=== PATIENT | male | born 1955 | race Two or more races ===

== ENCOUNTER 2022-05-13 10:20 | Inpatient (IN) | payer MEDICAID ==
[~2022-05-13] VITALS: Ht 175.3 cm; Wt 83.9 kg
--- NOTE | 2022-05-13 11:21 | NUR ---
DL HICKS FROM [facility]ARE HOME,C/O ABDOMINAL PAIN SINCE LAST NIGHT. PAIN IS 5/10 ON PAIN SCALE. PT ATTACHED TO MONITOR, VITALS ARE WITHIN NORMAL LIMITS, NO RESP DISTRESS NOTED ON ROOM AIR. WARM BLANKET PROVIDED FOR COMFORT. AWAITING MD ORDERS.
[2022-05-13 11:53] LABS: BASOPHILS # (AUTO) 0.1 K/uL (0.0-0.2); BASOPHILS % (AUTO) 0.9 % (0.0-2.0); EOSINOPHILS % (AUTO) 0.7 % (0.0-6.0); HEMATOCRIT 55 % (39-51); HEMOGLOBIN 18.7 g/dL (13.5-17.5); LYMPHOCYTES # (AUTO) 1.4 K/uL (0.8-4.8); LYMPHOCYTES % (AUTO) 13.6 % (20.0-44.0); MEAN CORPUSCULAR HGB CONC 34 g/dl (31.0-36.0); MEAN CORPUSCULAR VOLUME 99 fL (80-96); MONOCYTES # (AUTO) 0.7 K/uL (0.1-1.30); MONOCYTES % (AUTO) 7.2 % (2.0-12.0); NEUTROPHILS # (AUTO) 7.9 K/uL (1.8-8.9); NEUTROPHILS % (AUTO) 77.6 % (43.0-81.0); PLATELET COUNT (AUTO) 89 K/uL (150-450); RED BLOOD CELL COUNT(AUTO) 5.51 MIL/uL (4.5-6.0); WHITE BLOOD COUNT (AUTO) 10.2 K/uL (4.3-11.0)
[2022-05-13 12:01] LABS: CALCIUM, SERUM 9.6 mg/dL (8.5-10.1); CREATININE 1.4 mg/dL (0.6-1.3)
[2022-05-13 12:06] LABS: ALBUMIN 3.8 g/dL (3.4-5.0); BILIRUBIN,DIRECT 3.5 mg/dL (0.0-0.2); BILIRUBIN,TOTAL 5.2 mg/dL (0.2-1.0)
--- NOTE | 2022-05-13 12:10 | NUR ---
PATIENT TAKEN TO CT VIA [facility]
[2022-05-13] MEDS ORDERED: FAMO20TA8 PO (12:57)
[2022-05-13] MEDS ORDERED: ASPI-1169 PO (12:57)
[2022-05-13] MEDS ORDERED: ACET-868 PO (12:57)
[2022-05-13] MEDS ORDERED: LEVE500T20 PO (12:57)
[2022-05-13] MEDS ORDERED: LACT10SO3 PO (12:57)
[2022-05-13] MEDS ORDERED: METO25TA4 PO (12:57)
--- NOTE | 2022-05-13 13:18 | NUR ---
ULTRASOUND AT BEDSIDE
--- NOTE | 2022-05-13 13:31 | NUR ---
IV ESTABLIHSED L AC 20G.
--- NOTE | 2022-05-13 13:31 | NUR ---
COVID TEST COLLECTED AND SENT
--- NOTE | 2022-05-13 13:56 | NUR ---
URINE SAMPLE COLLECTED AND SENT TO LAB
[2022-05-13 14:31] LABS: BILIRUBIN,URINE MODERATE (NEGATIVE); COLOR,URINE YELLOW (YELLOW); LEUKOCYTE ESTERASE ,URINE NEGATIVE (NEGATIVE); NITRITE, URINE POSITIVE (NEGATIVE); PH,URINE 5.5 (5.0-8.0); PROTEIN,URINE 30 mg/dl (NEGATIVE); UGLUCOSE NEGATIVE (NEGATIVE); UROBILINOGEN,URINE >=8.0 EU/dL (0.2)
[2022-05-13] MEDS ORDERED: MORPHINE SULFATE INJ 2 MG/ML DISP.SYRIN IV ONE (15:00)
[2022-05-13] MEDS ORDERED: IV NS 0.9% 1,000 ML IV ONE (15:00)
[2022-05-13] MEDS ORDERED: ONDANSETRON HCL/PF 4 MG/2 ML VIAL IV ONE (15:00)
[2022-05-13] MEDS ORDERED: ONDANSETRON HCL/PF 4 MG/2 ML VIAL ONE (15:08)
[2022-05-13] MEDS ORDERED: MORPHINE SULFATE INJ 4 MG/ML DISP.SYRIN ONE (15:08)
--- NOTE | 2022-05-13 15:23 | NUR ---
CALLED DR. WANG LEFT MSG. GI
[2022-05-13 15:41] LABS: BACTERIA,URINE 1+ /HPF (None Seen); SQUAMOUS EPITHELIAL CELL,UR 0-2 /HPF (None Seen)
[2022-05-13] MEDS ORDERED: ONDANSETRON HCL/PF 4 MG/2 ML VIAL IVP PRN (16:30)
[2022-05-13] MEDS ORDERED: Z GUARD REMEDY 4 OZ OINT TP PRN (16:30)
[2022-05-13] MEDS ORDERED: LORAZEPAM INJ 2 MG/ML VIAL IV PRN (16:30)
[2022-05-13] MEDS: LEVETIRACETAM (500MG) 500 MG in IV NS 0.9% 100 ML IV SCH (16:39)
[2022-05-13 16:58] LABS: BAND % (MANUAL) 1 % (0.0-5.0); LYMPHOCYTES % (MANUAL) 15 % (16-48); MONOCYTES % (MANUAL) 6 % (0-11.0); NEUTROPHILS % (MANUAL) 78 (42-76)
--- NOTE | 2022-05-13 18:32 | NUR ---
BED GIVEN 110
--- NOTE | 2022-05-13 18:55 | NUR ---
REPORT GIVEN TO KJ FOR KADIE
[2022-05-13] MEDS ORDERED: MORPHINE SULFATE INJ 4 MG/ML DISP.SYRIN IV PRN (19:00)
--- NOTE | 2022-05-13 19:25 | NUR ---
HISTORY FACULTY MEMBER NOTE 1925 RECEIVED 66 YO M PT FROM ER TRANSPORTED VIA GURNEY ACCOMPANIED BY 2 ER STAFF. PT IS A/O X4, SWISS SPEAKING ONLY, AMBULATORY WITH ASSIST, ON RA TOLERATING WELL, ADMISSION CARE RENDERED, PT REFUSED TO WEAR HOSPITAL GOWN, SKIN IS INTACT, WITH IV ACCESS AT LAC #20G INTACT, PATENT, AND FLUSHING WELL. ABLE TO TURN AND REPOSITION, CALL LIGHT IN PLACE, INSTRUCTED TO CALL FOR ASSISTANCE, BED IN LOWEST AND LOCKED POSITION, V/S TAKEN AND RECORDED, WILL CONT TO MONITOR.
--- NOTE | 2022-05-13 19:31 | NUR ---
PT TRANSPORTED TO UNIT ON [facility] WITH EMT.
[2022-05-13 20:00] VITALS: BP 133/81
[2022-05-13] MEDS: IV D5/0.45 NACL 1,000 ML IV PRN (20:29)
[2022-05-14] MEDS: LEVETIRACETAM (500MG) 500 MG in IV NS 0.9% 100 ML IV SCH ×2 (03:46→16:23)
[2022-05-14 04:00] VITALS: BP 123/71
--- NOTE | 2022-05-14 06:49 | NUR ---
MS RN CLOSING NOTE PATIENT REMAINS IN BED, A/O X4, UZBEK SPEAKING ONLY, AMBULATORY WITH ASSIST, ON RA TOLERATING WELL, WITH IV ACCESS AT LAC #20G INTACT, PATENT, AND FLUSHING WELL RUNNING D5 1/2 NS AT 100 ML/HR. PT ON NPO STATUS, ALL DUE MEDS GIVEN, ABLE TO TURN AND REPOSITION, CALL LIGHT IN PLACE, BED IN LOWEST AND LOCKED POSITION, V/S TAKEN AND RECORDED, WILL ENDORSE TO AM SHIFT NURSE FOR CONTINUITY OF CARE.
[2022-05-14 07:22] LABS: THYROID STIMULATING HORMONE 1.354 uIU/mL (0.358-3.74)
--- NOTE | 2022-05-14 07:28 | NUR ---
INSTRUCTOR CREELER OPENING NOTES: RECEIVED BHUTANESE SPEAKING PATIENT IN BED, AWAKE, ALERT, ORIENTED X 4. NO RESPIRATORY DISTRESS NOTED. ON RA WITH OXYGEN SATURATION OF 96%. IV LINE ON LEFT AC INTACT, INFUSING WITH D51/2 NS @ 100 ML/HR. NO C/O PAIN OR NAUSEA AT THIS TIME. BED LOCKED AND IN LOWEST POSITION. CALL LIGHT WITHIN REACH. INSTRUCTED PATIENT TO PLEASE USE THE CALL LIGHT WHENEVER HE NEEDS TO USE THE BATHROOM OR TO PLEASE USE HIS URINAL THROUGH BHUTANESE SPEAKING GEOVANNA BUNDY. PATIENT AGREED AND UNDERSTOOD. WILL CONTINUE TO MONITOR PATIENT THROUGHOUT SHIFT.
[2022-05-14 07:37] LABS: BASOPHILS % (AUTO) 0.3 % (0.0-2.0); HEMATOCRIT 48 % (39-51); HEMOGLOBIN 16.2 g/dL (13.5-17.5); LYMPHOCYTES # (AUTO) 1.5 K/uL (0.8-4.8); LYMPHOCYTES % (AUTO) 16.9 % (20.0-44.0); MEAN CORPUSCULAR HGB CONC 34 g/dl (31.0-36.0); MEAN CORPUSCULAR VOLUME 100 fL (80-96); MONOCYTES % (AUTO) 10.7 % (2.0-12.0); NEUTROPHILS # (AUTO) 6.4 K/uL (1.8-8.9); NEUTROPHILS % (AUTO) 71.1 % (43.0-81.0); PLATELET COUNT (AUTO) 72 K/uL (150-450)
[2022-05-14 07:44] LABS: ALBUMIN 3.2 g/dL (3.4-5.0); BILIRUBIN,DIRECT 3.8 mg/dL (0.0-0.2); BILIRUBIN,TOTAL 6.7 mg/dL (0.2-1.0); CALCIUM, SERUM 8.8 mg/dL (8.5-10.1); CREATININE 1.2 mg/dL (0.6-1.3); MAGNESIUM 1.9 mg/dL (1.8-2.4); PHOSPHORUS 2.4 mg/dL (2.5-4.9); POTASSIUM 3.7 mmol/L (3.5-5.1); TOTAL PROTEIN, SERUM 6.9 g/dL (6.4-8.2)
[2022-05-14] MEDS: PANTOPRAZOLE 40 MG VIAL IV SCH (08:05)
[2022-05-14] MEDS: IV D5/0.45 NACL 1,000 ML IV PRN (08:53)
--- NOTE | 2022-05-14 08:58 | NUR ---
PATIENT WAS PICKED UP FOR MRI AND LEFT VIA WHEELCHAIR, PATENT LEFT IN NO ACUTE DISTRESS
--- NOTE | 2022-05-14 09:35 | NUR ---
PATIENT CAME BACK FROM THE PROCEDURE AND WAS PLACED BACK IN THE BED, PATIENT IN NO APPARENT DISTRESS AT THIS TIME
[2022-05-14] MEDS ORDERED: Sodium Phosphate 30 MMOL in IV NS 0.9% 250 ML IV SCH (10:00)
--- NOTE | 2022-05-14 10:29 | NUR ---
SPOKE WITH DR. LUZ AND WILL ORDER AN ERCP FOR THE PATIENT. WILL WITNESS INFORMED CONSENT
[2022-05-14 11:11] LABS: BAND % (MANUAL) 1 % (0.0-5.0); LYMPHOCYTES % (MANUAL) 14 % (16-48); MONOCYTES % (MANUAL) 8 % (0-11.0); NEUTROPHILS % (MANUAL) 77 (42-76)
[2022-05-14 12:00] VITALS: BP 126/71
[2022-05-14] MEDS: LACTULOSE 10 G/15 ML UDC (PYXIS) PO SCH ×2 (18:00→18:57)
--- NOTE | 2022-05-14 19:04 | NUR ---
MED SURG CLOSING NOTES: PATIENT IN BED, AWAKE, ALERT, ORIENTED, NO C/O PAIN OR DISCOMFORT AT THIS TIME, NO EPISODE OF N/V NOTED. PATIENT REMAINS STABLE THE ENTIRE SHIFT. CALL LIGHT WITHIN REACH. WILL ENDORSE TO NEXT SHIFT NURSE FOR CONTINUITY OF CARE.
[2022-05-14 20:00] VITALS: BP 135/63
--- NOTE | 2022-05-14 20:00 | NUR ---
RN NOTE RECEIVED PT AWAKE, WATCHING TV. AOX4. DENIES ANY SOB OR PAIN OR N/V. IVFLUIDS D51/2 NS RUNNING AT 100ML/HR, NO SIGNS OF INFILTRATION NOTED. INSTRUCTED PT TO BE NPO AFTER MIDNIGHT, VERBALIZES UNDERSTANDING. ALL SAFETY MEASURES IN PLACE PER PROTOCOL. WILL CONTINUE TO MONITOR.
[2022-05-14] MEDS: LEVOFLOXACIN 500 MG /D5W 100ML 500 MG in PREMIX 1 EA IV SCH (20:35)
[2022-05-14] MEDS: METRONIDAZOLE 500MG/ NS 100ML 500 MG in PREMIX 1 EA IV SCH (21:53)
[2022-05-15 04:00] VITALS: BP 119/78
[2022-05-15] MEDS: LEVETIRACETAM (500MG) 500 MG in IV NS 0.9% 100 ML IV SCH (04:51)
[2022-05-15] MEDS: IV D5/0.45 NACL 1,000 ML IV PRN (04:52)
[2022-05-15] MEDS: METRONIDAZOLE 500MG/ NS 100ML 500 MG in PREMIX 1 EA IV SCH ×3 (05:37→20:58)
[2022-05-15 06:08] LABS: ALBUMIN 2.8 g/dL (3.4-5.0); BILIRUBIN,DIRECT 1.9 mg/dL (0.0-0.2); BILIRUBIN,TOTAL 5.7 mg/dL (0.2-1.0); CALCIUM, SERUM 8.1 mg/dL (8.5-10.1); POTASSIUM 3.7 mmol/L (3.5-5.1); TOTAL PROTEIN, SERUM 6.2 g/dL (6.4-8.2)
--- NOTE | 2022-05-15 07:30 | NUR ---
RN OPENING NOTE PATIENT IS IN BED AWAKE, ALERT AND ORIENTED X 4. ON ROOM AIR, BREATHING UNLABORED AND NOT IN ANY FORM OF DISTRESS. NPO OF THIS TIME IN PREPARATION FOR ERCP. RIGHT FOREARM INTACT AND INFUSING WITH D51/2NS AT 100 ML/HR. ALL HOSPITAL SAFETY PRECAUTIONS IN PLACE. BED IS LOCKED IN LOWEST POSITION, 3 SIDE RAILS UP, CALL LIGHT WITHIN REACH. WILL CONTINUE TO MONITOR THROUGHOUT SHIFT.
--- NOTE | 2022-05-15 07:42 | NUR ---
RN NOTE PT AWAKE, DENIES ANY PAIN NO N/V ALL SHIFT. REMAIN NPO. CONTINUE WITH FLUIDS D51/2 NS AT 100ML/HR, INFUSING WELL. PT AMBULATES TO RESTROOM, STEADY GAIT. NEEDS ATTENDED. ENDORSED TO AM SHIFT NURSE FOR KADIE
[2022-05-15] MEDS ORDERED: ACETAMINOPHEN 325 MG TABLET PO PRN (09:00)
[2022-05-15] MEDS: LACTULOSE 10 G/15 ML UDC (PYXIS) PO SCH ×7 (09:00→21:00)
[2022-05-15] MEDS: PANTOPRAZOLE 40 MG VIAL IV SCH (09:21)
[2022-05-15] MEDS: LEVETIRACETAM (250 MG) 250 MG TABLET PO SCH ×2 (09:22→16:25)
[2022-05-15] MEDS: ASPIRIN 81 MG TAB.CHEW PO SCH (09:22)
[2022-05-15] MEDS: FAMOTIDINE (20 MG) 20 MG TABLET PO SCH (09:22)
--- NOTE | 2022-05-15 12:00 | NUR ---
RN NOTE DR. LUZ MADE ROUNDS. PER DOCTOR, ERCP WILL NOT PROCEED SINCE IT IS NOT NEEED BASED ON MRI OF ABDOMEN RESULT. FROM DR. LUZ'S END, PATIENT MAY BE DISCHARGED. DR. PÉREZ WAS INFORMED OVER THE PHONE, WHO IN TURN DIRECTED THE NURSE TO INFORM [id number] FOR CONSULT.
[2022-05-15 13:44] VITALS: BP 124/76
--- NOTE | 2022-05-15 17:00 | NUR ---
RN NOTE PATIENT WAS SEEN BY MARCO ANTONIO JOYCE FROM SURGERY. PER HAIR BLENDER, PATIENT REFUSED SURGERY, AND FROM SURGERY'S END, PATIENT CAN BE DISCHARGED. CHARGE NURSE MADE AWARE. CASE MANAGEMENT INFORMED OF THE PLAN.
--- NOTE | 2022-05-15 17:47 | NUR ---
RN NOTE LACTULOSE NOT GIVEN DUE TO PATIENT'S REFUSAL. TRIED TO EDUCATE PATIENT OF THE BENEFITS OF THE MEDICATION BUT PATIENT STILL REFUSED. DR. LUZ MADE AWARE.
--- NOTE | 2022-05-15 17:48 | NUR ---
RN NOTE METROPROLOL NOT GIVEN DUE TO HR 48 BPM.
[2022-05-15] MEDS ORDERED: METOPROLOL SUCCINATE 25 MG TAB.SR.24H PO SCH (18:00)
--- NOTE | 2022-05-15 18:49 | NUR ---
RN NOTE PATIENT IS AGITATED. ATIVAN GIVEN PRN.
--- NOTE | 2022-05-15 18:50 | NUR ---
RN CLOSING NOTE PATIENT REMAINED STABLE THROUGHOUT SHIFT. TOLERATES ROOM AIR, BREATHING UNLABORED AND NOT IN ANY FORM OF DISTRESS. PATIENT REFUSES IV INFUSION OF NS AT 100 ML/HR. PATIENT LIKEWISE REFUSED LACTULOSE SAYING IT GIVES HIM DIARRHEA. ALL HOSPITAL SAFETY PRECAUTIONS IN PLACE. BED IS LOCKED IN LOWEST POSITION, 3 SIDE RAILS UP, CALL LIGHT WITHIN REACH. WILL ENDORSE TO DRAW OFF WORKER NURSE.
--- NOTE | 2022-05-15 19:30 | NUR ---
RN OPENING NOTE PATIENT TOLERATES ROOM AIR, BREATHING UNLABORED AND NOT IN ANY FORM OF DISTRESS. PATIENT REFUSES IV INFUSION OF NS AT 100 ML/HR.ALL HOSPITAL SAFETY PRECAUTIONS IN PLACE. BED IS LOCKED IN LOWEST POSITION, 3 SIDE RAILS UP,
[2022-05-15 20:00] VITALS: BP 114/77
[2022-05-15] MEDS: LEVOFLOXACIN 500 MG /D5W 100ML 500 MG in PREMIX 1 EA IV SCH ×2 (20:44→20:46)
--- NOTE | 2022-05-15 21:02 | NUR ---
RN NOTE PT REPORTING MILD PAIN 3/10 PRN TYLENOL PROVIDED TOLERATED WELL.
--- NOTE | 2022-05-15 21:04 | NUR ---
RN NOTES PT REFUSING IV FLUIDS AND ANTIBIOTIC X3 RISK AND BENEFITS EXPLAINED PT STATED " I DON'T WANT ANY OF THAT JUST GIVE ME SOME TYLENOL THAT'S ALL IM GOING HOME TOMORROW ANYWAY ITS FINE"
[2022-05-16 04:09] VITALS: BP 113/68
[2022-05-16] MEDS: METRONIDAZOLE 500MG/ NS 100ML 500 MG in PREMIX 1 EA IV SCH (05:00)
--- NOTE | 2022-05-16 06:39 | NUR ---
RN CLOSING NOTE PATIENT TOLERATES ROOM AIR, BREATHING UNLABORED AND NOT IN ANY FORM OF DISTRESS. PATIENT REFUSES IV INFUSION OF NS AT 100 ML/HR. PT CONTINUOS TO REFUSE ALL IV FLUID AND ANTIBIOTICS DESPITE RISK AND BENEFITS EXPLANATION X3 PT KEEP INSISTING HE WANTS TO BE DISCHARGED TODAY.ALL HOSPITAL SAFETY PRECAUTIONS IN PLACE. BED IS LOCKED IN LOWEST POSITION, 3 SIDE RAILS UP,
[2022-05-16 06:53] LABS: ALBUMIN 2.9 g/dL (3.4-5.0); BILIRUBIN,DIRECT 1.5 mg/dL (0.0-0.2); BILIRUBIN,TOTAL 4.4 mg/dL (0.2-1.0); CALCIUM, SERUM 8.7 mg/dL (8.5-10.1); POTASSIUM 3.9 mmol/L (3.5-5.1); TOTAL PROTEIN, SERUM 6.6 g/dL (6.4-8.2)
--- NOTE | 2022-05-16 07:20 | NUR ---
RN OPENING NOTE PATIENT IS IN BED AWAKE, ALERT AND ORIENTED X 4. ON ROOM AIR, BREATHING UNLABORED AND NOT IN ANY FORM OF DISTRESS. . RIGHT FOREARM INTACT RX FLUIDS NOT RUNNING PATIENT REFUSES ANYTHING IV ENDORSED BY GLOBE CHANGER. ALL HOSPITAL SAFETY PRECAUTIONS IN PLACE. BED IS LOCKED IN LOWEST POSITION, 3 SIDE RAILS UP, CALL LIGHT WITHIN REACH. .
[2022-05-16] MEDS ORDERED: PANTOPRAZOLE 40 MG TABLET.DR PO SCH (07:30)
[2022-05-16] MEDS: FAMOTIDINE (20 MG) 20 MG TABLET PO SCH (08:16)
[2022-05-16] MEDS: ASPIRIN 81 MG TAB.CHEW PO SCH (08:16)
[2022-05-16] MEDS: LACTULOSE 10 G/15 ML UDC (PYXIS) PO SCH ×2 (08:16→12:07)
[2022-05-16] MEDS: LEVETIRACETAM (250 MG) 250 MG TABLET PO SCH (08:16)
[2022-05-16] MEDS ORDERED: LEVOFLOXACIN (250MG) 250 MG TABLET PO SCH (09:00)
--- NOTE | 2022-05-16 12:45 | NUR ---
RN NOTE PATIENT WAS PICKED UP IN STABLE CONDITION AND TAKEN TO [address] [place] [address]. D/C EDUCATION GIVEN IV REMOVED.
[2022-05-16] MEDS ORDERED: METRONIDAZOLE 500 MG TABLET PO SCH (13:00)
== END 2022-05-16 13:33 ==
LOC: ER 10:37 → MEDSG1 18:36
PROVIDERS: ADMIT Nurse Practitioner Acute Care; ATTEND Internal Medicine
DX: K80.50 Calculus of bile duct without cholangitis or cholecystitis without obstruction (principal); N17.0 Acute kidney failure with tubular necrosis; D61.818 Other pancytopenia; E88.09 Other disorders of plasma-protein metabolism, not elsewhere classified; E83.39 Other disorders of phosphorus metabolism; K76.6 Portal hypertension; Z20.822 Contact with and (suspected) exposure to COVID-19; K70.30 Alcoholic cirrhosis of liver without ascites; G40.909 Epilepsy, unspecified, not intractable, without status epilepticus; R74.01 Elevation of levels of liver transaminase levels; I10 Essential (primary) hypertension; Z79.82 Long term (current) use of aspirin; Z79.899 Other long term (current) drug therapy; R74.8 Abnormal levels of other serum enzymes; F10.11 Alcohol abuse, in remission
CPT/HCPCS: 36415; 74181-TC; 76705-TC; 80048-TC; 80076-TC; 81001; 82140-TC; 83690-TC; 83735-TC; 84100-TC; 84443-TC; 85025-TC; 87081-TC; 87086-TC; A4216; A9563; C9113; C9803; G0378; J1953; J1956; J2060; J2270; J2405; J3490; J7030; J7050

== ENCOUNTER 2022-05-16 18:18 | Inpatient (IN) | payer MEDICAID ==
[~2022-05-16] VITALS: Ht 175.3 cm; Wt 81.6 kg
[~2022-05-16 18:18] MED LIST: ACET-868 PO; ASPI-1169 PO; FAMO20TA8 PO; LACT10SO3 PO; LEVE500T20 PO; METO25TA4 PO
--- NOTE | 2022-05-16 18:30 | NUR ---
REceived pt 66 yrs male came from [facility] BY [facility] C/O ABDOMINALE PAIN WITH N/V awake and alert seen by DR. SERRANO
--- NOTE | 2022-05-16 18:45 | NUR ---
BLOOD DROW BY lab tach
[2022-05-16] MEDS ORDERED: IV NS 0.9% 1,000 ML BAG IV ONE (19:00)
--- NOTE | 2022-05-16 19:00 | NUR ---
Inserted ANGO CATHETER ON LT FOR ARM IVF NS INFUSED AND PATENT 1000ML OVER ONE HR
--- NOTE | 2022-05-16 19:15 | NUR ---
HAND OFF SEBAS RAMOS
--- NOTE | 2022-05-16 19:27 | NUR ---
deandre collected amd sent to lab
--- NOTE | 2022-05-16 19:31 | NUR ---
pt unable to provide urine sample. provided with urinal.
[2022-05-16 19:41] LABS: BILIRUBIN,DIRECT 5.8 mg/dL (0.0-0.2); BILIRUBIN,TOTAL 7.8 mg/dL (0.2-1.0); CALCIUM, SERUM 10.2 mg/dL (8.5-10.1); CREATININE 1.5 mg/dL (0.6-1.3); POTASSIUM 4.2 mmol/L (3.5-5.1); TOTAL PROTEIN, SERUM 8.4 g/dL (6.4-8.2)
[2022-05-16] MEDS ORDERED: MORPHINE SULFATE INJ 4 MG/ML DISP.SYRIN ONE (19:43)
[2022-05-16] MEDS ORDERED: ONDANSETRON HCL/PF 4 MG/2 ML VIAL ONE (19:43)
[2022-05-16] MEDS ORDERED: MORPHINE SULFATE INJ 2 MG/ML DISP.SYRIN IV ONE (20:00)
[2022-05-16] MEDS ORDERED: ONDANSETRON HCL/PF 4 MG/2 ML VIAL IVP ONE (20:00)
[2022-05-16 20:01] LABS: BASOPHILS % (AUTO) 0.3 % (0.0-2.0); EOSINOPHILS % (AUTO) 0.2 % (0.0-6.0); HEMATOCRIT 55 % (39-51); HEMOGLOBIN 18.6 g/dL (13.5-17.5); LYMPHOCYTES # (AUTO) 0.4 K/uL (0.8-4.8); LYMPHOCYTES % (AUTO) 4.8 % (20.0-44.0); MEAN CORPUSCULAR HGB CONC 34 g/dl (31.0-36.0); MEAN CORPUSCULAR VOLUME 100 fL (80-96); MONOCYTES # (AUTO) 0.5 K/uL (0.1-1.30); MONOCYTES % (AUTO) 5.6 % (2.0-12.0); NEUTROPHILS % (AUTO) 89.1 % (43.0-81.0); PLATELET COUNT (AUTO) 80 K/uL (150-450); RED BLOOD CELL COUNT(AUTO) 5.48 MIL/uL (4.5-6.0)
[2022-05-16] MEDS ORDERED: ONDANSETRON HCL/PF 4 MG/2 ML VIAL IVP PRN (21:30)
[2022-05-16] MEDS ORDERED: Z GUARD REMEDY 4 OZ OINT TP PRN (21:30)
[2022-05-16] MEDS ORDERED: MAGNESIUM HYDROXIDE 30 ML UDC PO PRN (21:30)
[2022-05-16] MEDS ORDERED: ACETAMINOPHEN 325 MG TABLET PO PRN ×2 (21:30)
[2022-05-16] MEDS ORDERED: MAG HYDROX/AL HYDROX/SIMETH 30 ML UDC PO PRN (21:30)
[2022-05-16 22:05] LABS: BAND % (MANUAL) 1 % (0.0-5.0); EOSINOPHILS % (MANUAL) 1 % (0-4); LYMPHOCYTES % (MANUAL) 9 % (16-48); MONOCYTES % (MANUAL) 1 % (0-11.0); NEUTROPHILS % (MANUAL) 88 (42-76)
--- NOTE | 2022-05-16 22:55 | NUR ---
REPORT GIVEN TO RICHARD RENE.
[2022-05-16 23:50] VITALS: BP 132/71
--- NOTE | 2022-05-16 23:50 | NUR ---
PT TRANSPORTED TO ROOM [facility]IA [facility].
--- NOTE | 2022-05-16 23:50 | NUR ---
MS POLYGRAPH TECHNICIAN NOTE RECEIVED REPORT FROM ER NURSE NASREEN. PT ADMITTED IN ROOM 312-2 WITH DIAGNOSIS OF ACUTE CHOLECYSTITIS. PT IS A/O X4, ABLE TO VERBALIZE NEEDS. ON ROOM AIR. TOLERATING RA WELL. PT ABLE TO AMBULATE TO BATHROOM. PT'S SKIN IS INTACT. C/O ABDOMINAL PAIN WITH PAIN MANAGEMENT IN PLACE. IV ACCESS TO LEFT FA INTACT, AND PATENT, IV RUNNING NS AT 75 ML/HR. WILL CONTINUE TO MONITOR PT.
--- NOTE | 2022-05-16 23:50 | NUR ---
URINE COLLECTED AND SENT TO LAB
[2022-05-17] MEDS: MORPHINE SULFATE INJ 2 MG/ML DISP.SYRIN IV PRN ×2 (01:23→16:45)
[2022-05-17] MEDS: ENOXAPARIN SODIUM 40 MG/0.4 ML DISP.SYRIN SQ SCH ×2 (01:33→21:46)
[2022-05-17 02:13] LABS: BILIRUBIN,URINE MODERATE (NEGATIVE); COLOR,URINE DARK YELLOW (YELLOW); LEUKOCYTE ESTERASE ,URINE NEGATIVE (NEGATIVE); NITRITE, URINE NEGATIVE (NEGATIVE); PH,URINE 5.5 (5.0-8.0); PROTEIN,URINE NEGATIVE (NEGATIVE); UGLUCOSE NEGATIVE (NEGATIVE); UROBILINOGEN,URINE 0.2 EU/dL (0.2)
[2022-05-17 02:17] LABS: BACTERIA,URINE Rare /HPF (None Seen); SQUAMOUS EPITHELIAL CELL,UR Few /HPF (None Seen)
[2022-05-17 02:18] LABS: HYALINE CASTS, URINE Few /LPF (None Seen)
--- NOTE | 2022-05-17 07:15 | NUR ---
MS RN CLOSING NOTE LEFT PT SLEEPING IN BED. PT A/OX4, ABLE TO MAKE NEEDS KNOWN. NO ACUTE DISTRESS NOTED, NO C/O PAIN AT THIS TIME. ALL MEDS GIVEN IN TIMELY MANNER. SAFETY MEASURES OBSERVED: BED IN LOW POSITION, BED LOCKED, SIDE RAILS UP X2, CALL LIGHT WITHIN REACH. WILL ENDORSE PT'S CARE TO AM SHIFT NURSE.
--- NOTE | 2022-05-17 07:25 | NUR ---
RN OPENING NOTES RECEIVED PATIENT IN BED AWAKE, A/O X4, VERBALLY RESPONSIVE, NO SIGNS OF ACUTE DISTRESS NOTED. DENIES ANY PAIN AT THIS TIME. ON ROOM AIR, NO SOB NOTED, BREATHING EVEN AND UNLABORED. NOTED WITH IV ACCESS ON LEFT FORE ARM #20G, INTACT AND PATENT WITH NS @75ML/HR RUNNING. SAFETY MEASURE IN PLACE. BED IN LOWEST AND LOCKED POSITION , SIDE RAILS UP X2, CALL LIGHT PLACED WITHIN EASY REACH. WILL CONTINUE TO MONITOR PATIENT.
[2022-05-17 07:43] LABS: BASOPHILS % (AUTO) 0.5 % (0.0-2.0); EOSINOPHILS % (AUTO) 3.3 % (0.0-6.0); HEMATOCRIT 48 % (39-51); HEMOGLOBIN 16.1 g/dL (13.5-17.5); LYMPHOCYTES # (AUTO) 1.5 K/uL (0.8-4.8); MEAN CORPUSCULAR HGB CONC 34 g/dl (31.0-36.0); MEAN CORPUSCULAR VOLUME 101 fL (80-96); MONOCYTES # (AUTO) 0.8 K/uL (0.1-1.30); MONOCYTES % (AUTO) 9.9 % (2.0-12.0); NEUTROPHILS # (AUTO) 5.5 K/uL (1.8-8.9); NEUTROPHILS % (AUTO) 67.3 % (43.0-81.0); PLATELET COUNT (AUTO) 65 K/uL (150-450); RED BLOOD CELL COUNT(AUTO) 4.74 MIL/uL (4.5-6.0); WHITE BLOOD COUNT (AUTO) 8.1 K/uL (4.3-11.0)
[2022-05-17 08:14] LABS: ALBUMIN 2.7 g/dL (3.4-5.0); BILIRUBIN,DIRECT 5.3 mg/dL (0.0-0.2); BILIRUBIN,TOTAL 7.2 mg/dL (0.2-1.0); CALCIUM, SERUM 8.5 mg/dL (8.5-10.1); CREATININE 1.1 mg/dL (0.6-1.3); MAGNESIUM 2.1 mg/dL (1.8-2.4); PHOSPHORUS 2.3 mg/dL (2.5-4.9); TOTAL PROTEIN, SERUM 6.2 g/dL (6.4-8.2)
[2022-05-17 08:34] VITALS: BP 128/70
[2022-05-17] MEDS: PANTOPRAZOLE 40 MG VIAL IV SCH (08:54)
[2022-05-17] MEDS: ASPIRIN 81 MG TAB.CHEW PO SCH (08:54)
[2022-05-17] MEDS: LEVETIRACETAM (250 MG) 250 MG TABLET PO SCH ×2 (08:54→21:31)
[2022-05-17] MEDS: FAMOTIDINE (20 MG) 20 MG TABLET PO SCH (08:54)
[2022-05-17] MEDS: LACTULOSE 10 G/15 ML UDC (PYXIS) PO SCH ×5 (09:30→21:30)
--- NOTE | 2022-05-17 09:47 | NUR ---
RN NOTE PATIENT REFUSED LACTULOSE IN SPITE EXPLANATION OF IMPORTANCE, PT STILL STRONGLY REFUSED SAID IT MAKES HIM GO TO THE BATHROOM OFTEN.
[2022-05-17 11:59] LABS: BAND % (MANUAL) 1 % (0.0-5.0); EOSINOPHILS % (MANUAL) 5 % (0-4); LYMPHOCYTES % (MANUAL) 19 % (16-48); MONOCYTES % (MANUAL) 8 % (0-11.0); NEUTROPHILS % (MANUAL) 67 (42-76)
[2022-05-17 16:32] VITALS: BP 130/70
[2022-05-17] MEDS: IV D5/0.45 NACL 1,000 ML IV PRN (16:35)
[2022-05-17] MEDS: METOPROLOL SUCCINATE 25 MG TAB.SR.24H PO SCH (17:03)
[2022-05-17] MEDS ORDERED: NEUTRA PHOS 1 POWD.PACKET PO ONE (18:00)
--- NOTE | 2022-05-17 18:48 | NUR ---
RN CLOSING NOTES PATIENT IN BED AWAKE, A/O X4, VERBALLY RESPONSIVE, NO SIGNS OF ACUTE DISTRESS NOTED. REMAINS STABLE ON ROOM AIR, NO SOB NOTED, BREATHING EVEN AND UNLABORED. IV ACCESS ON LEFT FORE ARM #20G, INTACT AND PATENT WITH NS @75ML/HR RUNNING. PATIENT REFUSED LACTULOSE IN SPITE EXPLANATION OF IMPORTANCE. ALL OTHER MEDS TAKEN WELL. REMAINS ON CLEAR LIQUID UNTIL CLEAR PLAN FOR SURGERY. SAFETY MEASURE IN PLACE. BED IN LOWEST AND LOCKED POSITION , SIDE RAILS UP X2, CALL LIGHT PLACED WITHIN EASY REACH. WILL ENDORSE TO NEXT SHIFT FOR CONTINUITY OF CARE.
--- NOTE | 2022-05-17 19:35 | NUR ---
MS RN OPENING NOTE RECEIVED PATIENT IN BED AWAKE, A/O X 4, VERBALLY RESPONSIVE, NO SIGNS OF ACUTE DISTRESS OR SOB NOTED. DENIES ANY PAIN AT THIS TIME. ON ROOM AIR. BREATHING EVEN AND UNLABORED. IV ACCESS TO LEFT FOREARM #20G, INTACT AND PATENT WITH D5 1/2 NS RUNNING AT 75ML/HR. SAFETY MEASURE IN PLACE. BED IN LOWEST AND LOCKED POSITION , SIDE RAILS UP X2, CALL LIGHT PLACED WITHIN EASY REACH. WILL CONTINUE TO MONITOR PATIENT.
[2022-05-17 20:00] VITALS: BP 136/72
--- NOTE | 2022-05-17 21:30 | NUR ---
PT'S PLT LEVEL IS LOW, PLT: 65, HGB: 16.1, HCT: 48. YESTERDAY PLT WAS 80. PT IS ON LOVENOX 40 MG QD. MD ANTONY WALKER CALLED, AND ASKED IF LOVENOX SHOULD BE HELD D/T LOW PLT. ADVICES TO GIVE LOVENOX ANYWAY. LOVENOX IS ADMINISTERED BY MD HICKMAN.
[2022-05-18] MEDS: MORPHINE SULFATE INJ 2 MG/ML DISP.SYRIN IV PRN ×2 (06:43→21:35)
--- NOTE | 2022-05-18 07:13 | NUR ---
MS RN CLOSING NOTE PATIENT SLEEPING IN BED, PT A/O X4, ABLE TO VERBALIZE NEEDS. ON ROOM AIR, TOLERATING WELL. NO SOB, NO DISTRESS NOTED. NO C/O PAIN AT THIS TIME. COMFORT MEASURES PROVIDED. WITH IV ACCESS TO RIGHT FA WITH D5 1/2 NS AT 75ML/HR, INFUSING WELL. SAFETY MEASURES IN PLACED. CALL LIGHT WITHIN REACH. BED IN LOWEST LOCKED POSITION, SIDE RAILS UP X2. WILL ENDORSE TO NEXT SHIFT NURSE FOR KADIE.
--- NOTE | 2022-05-18 07:33 | NUR ---
MS RN OPENING NOTE Pt awake in bed, A/O x4. On room air. No signs of SOB and unlabored breathing. Denies any pain. IV access at R FA #22G with D5 1/2 NS @ 75 mL/hr. Safety measures in place. Bed in low and locked position, side rails up x2, call light placed within easy reach. Will continue to monitor patient. Addendum: 05/18/22 at 0747 by ALYCE GARRISON RN Correction: No signs of labored breathing (not unlabored breathing)
[2022-05-18 08:00] VITALS: BP 124/79
[2022-05-18] MEDS: LACTULOSE 10 G/15 ML UDC (PYXIS) PO SCH ×5 (09:00→21:00)
[2022-05-18] MEDS: PANTOPRAZOLE 40 MG VIAL IV SCH (09:05)
[2022-05-18] MEDS: FAMOTIDINE (20 MG) 20 MG TABLET PO SCH (09:06)
[2022-05-18] MEDS: ASPIRIN 81 MG TAB.CHEW PO SCH (09:06)
[2022-05-18] MEDS: LEVETIRACETAM (250 MG) 250 MG TABLET PO SCH ×2 (09:07→21:18)
--- NOTE | 2022-05-18 11:00 | NUR ---
MS LISA WAS SEEN BY DR. JUD Nichols/ ORDERS MADE AND CARRIED OUT.
--- NOTE | 2022-05-18 14:24 | NUR ---
RN NOTES Dr. Martin came to see patient with order to advance diet to as tolerated. Addendum: 05/18/22 at 1508 by ALYCE GARRISON RN Correction: Dr. Cueva
[2022-05-18 16:00] VITALS: BP 130/73
[2022-05-18] MEDS: METOPROLOL SUCCINATE 25 MG TAB.SR.24H PO SCH (18:00)
--- NOTE | 2022-05-18 18:26 | NUR ---
MS RN ON BED, ALL NEEDS ATTENDED, WILL ENDORSE TO PASSENGER TIRE INSPECTOR FOR KADIE.
--- NOTE | 2022-05-18 19:30 | NUR ---
RN OPENING NOTE PATIENT IN BED, AWAKE. A/O X 4 ABLE TO MAKE NEEDS KNOWN. PATIENT IS ON RA, TOLERATING WELL, NO SOB NOTED. PATIENT DOES NOT REPORT ANY PAIN AT THIS TIME. PATIENT HAS A RFA 22 G WITH D5 1/2 NS AT 75 ML/HR. PATIENT NOT IN ANY APPARENT DISTRESS. SAFETY MEASURES IN PLACE: BED LOCKED AND IN LOWEST POSITION, CALL LIGHT WITHIN REACH, SIDE RAILS UP. WILL MONITOR PATIENT CLOSELY.
[2022-05-18 20:00] VITALS: BP 138/72
[2022-05-18] MEDS: IV D5/0.45 NACL 1,000 ML IV PRN (21:20)
[2022-05-18] MEDS: ENOXAPARIN SODIUM 40 MG/0.4 ML DISP.SYRIN SQ SCH (21:20)
--- NOTE | 2022-05-18 21:35 | NUR ---
RN NOTE PATIENT REFUSED LACTULOSE, STATES THAT HE TOOK ONE TODAY ALREADY. INFORMED PATIENT REGARDING THE FREQUENCY OF THE MEDICATION. STILL REFUSING. MORPHINE GIVEN FOR PAIN ON HIS ABDOMEN. WILL REASSESS MED EFFECTIVENESS AT A LATER TIME.
[2022-05-19 06:29] LABS: BASOPHILS # (AUTO) 0.1 K/uL (0.0-0.2); EOSINOPHILS % (AUTO) 5.2 % (0.0-6.0); HEMATOCRIT 49 % (39-51); HEMOGLOBIN 16.5 g/dL (13.5-17.5); LYMPHOCYTES # (AUTO) 1.3 K/uL (0.8-4.8); LYMPHOCYTES % (AUTO) 23.3 % (20.0-44.0); MEAN CORPUSCULAR HGB CONC 34 g/dl (31.0-36.0); MEAN CORPUSCULAR VOLUME 101 fL (80-96); MONOCYTES # (AUTO) 0.8 K/uL (0.1-1.30); MONOCYTES % (AUTO) 14.1 % (2.0-12.0); NEUTROPHILS # (AUTO) 3.2 K/uL (1.8-8.9); NEUTROPHILS % (AUTO) 56.4 % (43.0-81.0); PLATELET COUNT (AUTO) 66 K/uL (150-450); RED BLOOD CELL COUNT(AUTO) 4.82 MIL/uL (4.5-6.0); WHITE BLOOD COUNT (AUTO) 5.6 K/uL (4.3-11.0)
--- NOTE | 2022-05-19 07:01 | NUR ---
RN CLOSING NOTE PATIENT IN BED, EYES CLOSED, EASILY AWAKENED. A/O X 4 ABLE TO MAKE NEEDS KNOWN. PATIENT IS ON RA, TOLERATING WELL, NO SOB NOTED. PAIN MANAGED WITH MORPHINE IV. PATIENT HAS A RFA 22 G WITH D5 1/2 NS AT 75 ML/HR. PATIENT NOT IN ANY APPARENT DISTRESS. SAFETY MEASURES IN PLACE: BED LOCKED AND IN LOWEST POSITION, CALL LIGHT WITHIN REACH, SIDE RAILS UP. ALL NEEDS MET AND ATTENDED. ALL ORDERS CARRIED OUT. WILL ENDORSE TO DAY SHIFT NURSE FOR KADIE.
[2022-05-19 07:11] LABS: ALBUMIN 2.7 g/dL (3.4-5.0); BILIRUBIN,TOTAL 3.4 mg/dL (0.2-1.0); CALCIUM, SERUM 8.6 mg/dL (8.5-10.1); CREATININE 1.2 mg/dL (0.6-1.3); MAGNESIUM 1.7 mg/dL (1.8-2.4); PHOSPHORUS 2.8 mg/dL (2.5-4.9); POTASSIUM 3.7 mmol/L (3.5-5.1); TOTAL PROTEIN, SERUM 6.3 g/dL (6.4-8.2)
--- NOTE | 2022-05-19 08:07 | NUR ---
MS RN OPENING NOTE Patient in bed, asleep. A/O x 4. On room air, breathing evenly and unlabored. No SOB or s/s of distress noted. IV access on RFA #22 infusing D5 1/2 NS at 75 ml/hr. Safety precautions in place: bed in low, locked position; siderails up x 2, call light within reach. Will continue to monitor.
[2022-05-19] MEDS: FAMOTIDINE (20 MG) 20 MG TABLET PO SCH (08:52)
[2022-05-19] MEDS: LEVETIRACETAM (250 MG) 250 MG TABLET PO SCH (08:52)
[2022-05-19] MEDS: ASPIRIN 81 MG TAB.CHEW PO SCH (08:52)
[2022-05-19] MEDS: LACTULOSE 10 G/15 ML UDC (PYXIS) PO SCH ×3 (08:52→12:19)
[2022-05-19] MEDS ORDERED: PANTOPRAZOLE 40 MG/PACK PACK PO SCH (09:00)
[2022-05-19 10:00] VITALS: BP 139/74
[2022-05-19 10:55] LABS: BASOPHILS % (MANUAL) 0 % (0.0-2.0); EOSINOPHILS % (MANUAL) 2 % (0-4); LYMPHOCYTES % (MANUAL) 21 % (16-48); MONOCYTES % (MANUAL) 13 % (0-11.0); NEUTROPHILS % (MANUAL) 64 (42-76)
[2022-05-19] MEDS ORDERED: MAGNESIUM OXIDE 400 MG TABLET PO ONE (11:00)
[2022-05-19] MEDS: MORPHINE SULFATE INJ 2 MG/ML DISP.SYRIN IV PRN (15:38)
--- NOTE | 2022-05-19 19:47 | NUR ---
DISCHARGE NOTE Received order for discharge. Patient is A/O x 4, able to make needs known. Stable on room air, breathing evenly and unlabored. No SOB or s/s of distress noted. Discharge instruction given to patient both verbally and in written form, verbalized understanding. Patient denies any pain or discomfort at this time. IV access removed, catheter tip intact. Pressure dressing applied. ID band removed. Patient left in stable condition via [employer].
== END 2022-05-19 18:14 ==
LOC: ER 18:20 → MED 22:39
PROVIDERS: ADMIT Registered Nurse
DX: K80.70 Calculus of gallbladder and bile duct without cholecystitis without obstruction (principal); D61.818 Other pancytopenia; K70.31 Alcoholic cirrhosis of liver with ascites; G40.909 Epilepsy, unspecified, not intractable, without status epilepticus; I10 Essential (primary) hypertension; Z79.82 Long term (current) use of aspirin; Z79.899 Other long term (current) drug therapy; E80.6 Other disorders of bilirubin metabolism; F10.11 Alcohol abuse, in remission; Z20.822 Contact with and (suspected) exposure to COVID-19
CPT/HCPCS: 36415; 71045-TC; 74181-TC; 80048-TC; 80053-TC; 80076-TC; 81001; 82247-TC; 82248-TC; 83690-TC; 83735-TC; 84100-TC; 85025-TC; 85730-TC; 87081-TC; C9113; C9803; G0378; J1650; J2270; J2405; J3490; J7030

== ENCOUNTER 2023-06-14 10:19 | Emergency (ER) | payer MEDICAID ==
[~2023-06-14] VITALS: Ht 172.7 cm; Wt 76.2 kg
[~2023-06-14 10:19] MED LIST changes: +AMOX-430 PO
[2023-06-14] MEDS ORDERED: LORAZEPAM INJ 2 MG/ML VIAL IVP ONE (11:00)
[2023-06-14] MEDS ORDERED: LORAZEPAM INJ 2 MG/ML VIAL ONE (11:02)
[2023-06-14 11:15] LABS: EOSINOPHILS % (AUTO) 0.1 % (0.0-6.0); LYMPHOCYTES # (AUTO) 0.2 K/uL (0.8-4.8); MONOCYTES # (AUTO) 0.7 K/uL (0.1-1.30); WHITE BLOOD COUNT (AUTO) 4.2 K/uL (4.3-11.0)
[2023-06-14 11:20] LABS: BASOPHILS % (AUTO) 0.2 % (0.0-2.0); HEMATOCRIT 47 % (39-51); HEMOGLOBIN 16.4 g/dL (13.5-17.5); LYMPHOCYTES % (AUTO) 5.4 % (20.0-44.0); MEAN CORPUSCULAR HEMOGLOBIN 34 PG (26.0-33.0); MEAN CORPUSCULAR HGB CONC 35 g/dl (31.0-36.0); MEAN CORPUSCULAR VOLUME 98 fL (80-96); MONOCYTES % (AUTO) 16.4 % (2.0-12.0); NEUTROPHILS # (AUTO) 3.3 K/uL (1.8-8.9); NEUTROPHILS % (AUTO) 77.9 % (43.0-81.0); PLATELET COUNT (AUTO) 78 K/uL (150-450); RED BLOOD CELL COUNT(AUTO) 4.83 MIL/uL (4.5-6.0)
[2023-06-14] MEDS ORDERED: ONDANSETRON HCL/PF - ER 4 MG/2 ML VIAL IV ONE (11:30)
[2023-06-14] MEDS ORDERED: ONDANSETRON HCL/PF 4 MG/2 ML VIAL ONE (11:32)
[2023-06-14 11:39] LABS: INR 1.2 (0.91-1.10); PARTIAL THROMBOPLASTIN TIME 34.1 SEC (24.3-34.3); PROTHROMBIN TIME 12.6 SECS (9.2-11.1)
[2023-06-14 12:14] LABS: CALCIUM, SERUM 9.4 mg/dL (8.5-10.1); CREATININE 1.3 mg/dL (0.6-1.3); POTASSIUM 4.2 mmol/L (3.5-5.1)
[2023-06-14 12:18] LABS: BILIRUBIN,TOTAL 1.8 mg/dL (0.2-1.0); TOTAL PROTEIN, SERUM 7.7 g/dL (6.4-8.2)
[2023-06-14 14:56] LABS: AMPHETAMINE, URINE NEGATIVE (NEGATIVE); BARBITURATE, URINE NEGATIVE (NEGATIVE); BENZODIAZEPINE, URINE NEGATIVE (NEGATIVE); CANNABINOID, URINE NEGATIVE (NEGATIVE); COCCAINE, URINE NEGATIVE (NEGATIVE); OPIATE, URINE NEGATIVE (NEGATIVE); PHENCYCLIDINE SCREEN,URINE NEGATIVE (NEGATIVE)
[2023-06-14 15:07] VITALS: BP 110/65; TEMP 98.7; O2SAT 98
[2023-06-14 15:23] LABS: LYMPHOCYTES % (MANUAL) 4 % (16-48); MONOCYTES % (MANUAL) 17 % (0-11.0); NEUTROPHILS % (MANUAL) 79 (42-76); PLATELET ESTIMATE DECREASED
== END 2023-06-14 14:55 | disposition home or self-care (01) ==
LOC: ER 10:25
DX: R56.9 Unspecified convulsions (principal); F10.129 Alcohol abuse with intoxication, unspecified; I10 Essential (primary) hypertension; Y90.6 Blood alcohol level of 120-199 mg/100 ml
CPT/HCPCS: 99284; 96374; 96375; 93005; 85025; 80048; 80076; 85007; 36415; 85730; 80320; 80307; J2060; J2405; G0480

== ENCOUNTER 2023-06-15 10:09 | Emergency (ER) | payer MEDICAID ==
[~2023-06-15] VITALS: Ht 172.7 cm; Wt 74.8 kg
[2023-06-15] MEDS ORDERED: ACETAMINOPHEN ES 500 MG TABLET ONE (10:39)
[2023-06-15] MEDS ORDERED: IBUPROFEN 400 MG TABLET ONE (10:39)
[2023-06-15] MEDS: IBUPROFEN 400 MG TABLET PO ONE (10:40)
[2023-06-15] MEDS: ACETAMINOPHEN ES 500 MG TABLET PO ONE (10:41)
[2023-06-15 13:51] VITALS: BP 140/100; TEMP 98.1; O2SAT 95
== END 2023-06-15 13:30 | disposition home health service (06) ==
LOC: ER 10:13
DX: R07.89 Other chest pain (principal); I10 Essential (primary) hypertension
CPT/HCPCS: 71045-TC

== ENCOUNTER 2023-11-20 19:41 | Inpatient (IN) | payer MEDICAID, OTHER ==
[~2023-11-20] VITALS: Ht 175.3 cm; Wt 68.0 kg
[~2023-11-20 19:41] MED LIST changes: -AMOX-430 PO; +CHOL12502 PO
[2023-11-20] MEDS: IV NS 0.9% 500 ML BAG IV ONE (19:58)
[2023-11-20 20:27] LABS: BASOPHILS % (AUTO) 0.7 % (0.0-2.0); EOSINOPHILS % (AUTO) 0.9 % (0.0-6.0); HEMATOCRIT 46 % (39-51); HEMOGLOBIN 15.4 g/dL (13.5-17.5); LYMPHOCYTES # (AUTO) 1.4 K/uL (0.8-4.8); LYMPHOCYTES % (AUTO) 27.5 % (20.0-44.0); MEAN CORPUSCULAR HEMOGLOBIN 34 PG (26.0-33.0); MEAN CORPUSCULAR HGB CONC 34 g/dl (31.0-36.0); MEAN CORPUSCULAR VOLUME 100 fL (80-96); MONOCYTES # (AUTO) 0.5 K/uL (0.1-1.30); MONOCYTES % (AUTO) 9.2 % (2.0-12.0); NEUTROPHILS # (AUTO) 3.2 K/uL (1.8-8.9); NEUTROPHILS % (AUTO) 61.7 % (43.0-81.0); PLATELET COUNT (AUTO) 58 K/uL (150-450); RED BLOOD CELL COUNT(AUTO) 4.56 MIL/uL (4.5-6.0); WHITE BLOOD COUNT (AUTO) 5.2 K/uL (4.3-11.0)
[2023-11-20 20:33] LABS: INR 1.46 (0.91-1.10); PARTIAL THROMBOPLASTIN TIME 29.6 SEC (24.3-34.3); PROTHROMBIN TIME 14.7 SECS (9.2-11.1)
[2023-11-20 20:36] LABS: ALANINE AMINOTRANSFERASE 130 U/L (12-78); ALBUMIN 2.9 g/dL (3.4-5.0); ALKALINE PHOSPHATASE 121 U/L (46-116); ASPARTATE AMINOTRANSFERASE 341 U/L (15-37); BILIRUBIN,DIRECT 3.5 mg/dL (0.0-0.2); BILIRUBIN,TOTAL 5.2 mg/dL (0.2-1.0); CARBON DIOXIDE 25 mmol/L (21-32); CHLORIDE 104 mmol/L (98-107); CREATININE 1.1 mg/dL (0.6-1.3); GLUCOSE 131 mg/dL (74-106); POTASSIUM 3.4 mmol/L (3.5-5.1); SODIUM SERUM 141 mmol/L (136-145); TOTAL PROTEIN, SERUM 6.7 g/dL (6.4-8.2); UREA NITROGEN, BLOOD 8 mg/dL (7-18)
[2023-11-20] MEDS ORDERED: LEVETIRACETAM (500MG) 500 MG/5 ML VIAL IV ONE (20:37)
[2023-11-20] MEDS: LEVETIRACETAM (500MG) 1,000 MG in IV NS 0.9% 90 ML IV STA (20:39)
[2023-11-20 20:44] LABS: CALCIUM, SERUM 7.8 mg/dL (8.5-10.1)
[2023-11-20 21:49] LABS: NEUTROPHILS % (MANUAL) 60 (42-76)
[2023-11-20 21:50] LABS: LYMPHOCYTES % (MANUAL) 30 % (16-48); MONOCYTES % (MANUAL) 10 % (0-11.0); PLATELET ESTIMATE DECREASED
[2023-11-21 02:09] VITALS: BP 107/77; TEMP 98.9; O2SAT 97
[2023-11-21] MEDS ORDERED: LORAZEPAM INJ 2 MG/ML VIAL IV PRN (03:00)
[2023-11-21] MEDS ORDERED: Z GUARD REMEDY 4 OZ OINT TP PRN (03:00)
[2023-11-21] MEDS ORDERED: ACETAMINOPHEN 325 MG TABLET PO PRN ×2 (03:00)
[2023-11-21] MEDS ORDERED: MAG HYDROX/AL HYDROX/SIMETH 30 ML UDC PO PRN (03:00)
[2023-11-21] MEDS ORDERED: MAGNESIUM HYDROXIDE 30 ML UDC PO PRN (03:00)
[2023-11-21] MEDS: IV LR 1000 ML 1,000 ML IV PRN (03:29)
[2023-11-21 03:47] VITALS: BP_SYST 119; BP_SYST 151; BP_DIAS 72; BP_DIAS 81; TEMP 98; TEMP 98.1; O2SAT 100; O2SAT 93
[2023-11-21] MEDS ORDERED: Thiamine 100 MG/ML VIAL ONE (03:54)
[2023-11-21] MEDS: Thiamine 100 MG in IV D5W 50 ML IV ONE (04:01)
[2023-11-21 08:23] VITALS: BP 128/86; TEMP 98.2; O2SAT 78
[2023-11-21] MEDS: PANTOPRAZOLE 40 MG TABLET.DR PO SCH (09:21)
[2023-11-21] MEDS: FAMOTIDINE (20 MG) 20 MG TABLET PO SCH (09:21)
[2023-11-21] MEDS: THIAMINE HCL 100 MG TABLET PO SCH (09:21)
[2023-11-21] MEDS: LACTULOSE 10 G/15 ML UDC (PYXIS) PO SCH (09:21)
[2023-11-21] MEDS: ASPIRIN 81 MG TAB.CHEW PO SCH (09:21)
[2023-11-21] MEDS: MULTIVITAMINS,THERAGRAN 1 UDTAB TABLET PO SCH (09:21)
[2023-11-21] MEDS: LEVETIRACETAM SOL (5 ML) 100 MG/ML UDC PO SCH (09:21)
[2023-11-21] MEDS: POTASSIUM CHLORIDE 20 MEQ TAB.PRT.SR PO SCH (09:23)
[2023-11-21] MEDS ORDERED: SPIR25TA6 PO (12:29)
[2023-11-21] MEDS ORDERED: FERR325T23 PO (12:29)
[2023-11-21] MEDS ORDERED: PROP10DR4 EACHEYE (12:29)
[2023-11-21] MEDS ORDERED: MAGNESIUM CITRATE PO (12:29)
[2023-11-21 13:26] VITALS: BP 105/73; TEMP 98.4; O2SAT 97
[2023-11-21 14:10] LABS: AMPHETAMINE, URINE NEGATIVE (NEGATIVE); BARBITURATE, URINE NEGATIVE (NEGATIVE); BENZODIAZEPINE, URINE NEGATIVE (NEGATIVE); CANNABINOID, URINE NEGATIVE (NEGATIVE); COCCAINE, URINE NEGATIVE (NEGATIVE); OPIATE, URINE NEGATIVE (NEGATIVE); PHENCYCLIDINE SCREEN,URINE NEGATIVE (NEGATIVE)
[2023-11-21 16:00] VITALS: BP 106/74; TEMP 99.3; O2SAT 96
[2023-11-21] MEDS: METOPROLOL SUCCINATE 25 MG TAB.SR.24H PO SCH (18:15)
[2023-11-21] MEDS: IV NS 0.9% 1,000 ML IV PRN (19:14)
[2023-11-21 20:00] VITALS: BP 127/81; TEMP 98.9; O2SAT 96
[2023-11-22] VITALS (7 sets, daily range): BP systolic 100–160; BP diastolic 73–89; TEMP 97.4–99.1; O2SAT 93–96
[2023-11-22] MEDS: ONDANSETRON HCL/PF 4 MG/2 ML VIAL IVP PRN (03:20)
[2023-11-22 07:38] LABS: BASOPHILS % (AUTO) 0.6 % (0.0-2.0); EOSINOPHILS % (AUTO) 0.4 % (0.0-6.0); HEMATOCRIT 42 % (39-51); HEMOGLOBIN 14.4 g/dL (13.5-17.5); LYMPHOCYTES # (AUTO) 0.9 K/uL (0.8-4.8); LYMPHOCYTES % (AUTO) 18.5 % (20.0-44.0); MEAN CORPUSCULAR HEMOGLOBIN 34 PG (26.0-33.0); MEAN CORPUSCULAR HGB CONC 34 g/dl (31.0-36.0); MEAN CORPUSCULAR VOLUME 101 fL (80-96); MONOCYTES # (AUTO) 0.5 K/uL (0.1-1.30); MONOCYTES % (AUTO) 9.3 % (2.0-12.0); NEUTROPHILS # (AUTO) 3.6 K/uL (1.8-8.9); NEUTROPHILS % (AUTO) 71.2 % (43.0-81.0); RED BLOOD CELL COUNT(AUTO) 4.21 MIL/uL (4.5-6.0); RED CELL DISTRIBUTION WIDTH 14.9 % (11.5-15.0)
[2023-11-22 07:43] LABS: ALBUMIN 2.4 g/dL (3.4-5.0); BILIRUBIN,TOTAL 8.4 mg/dL (0.2-1.0); CALCIUM, SERUM 7.9 mg/dL (8.5-10.1); CREATININE 0.9 mg/dL (0.6-1.3); PHOSPHORUS 1.8 mg/dL (2.5-4.9); POTASSIUM 3.8 mmol/L (3.5-5.1); TOTAL PROTEIN, SERUM 6.2 g/dL (6.4-8.2)
[2023-11-22 07:50] LABS: MAGNESIUM 1.2 mg/dL (1.8-2.4)
[2023-11-22 07:51] LABS: THYROID STIMULATING HORMONE 0.908 uIU/mL (0.358-3.74)
[2023-11-22 07:52] LABS: PLATELET COUNT (AUTO) 37 K/uL (150-450)
[2023-11-22] MEDS: CHLORDIAZEPOXIDE HCL 25 MG CAPSULE PO SCH (08:59)
[2023-11-22 09:25] LABS: LYMPHOCYTES % (MANUAL) 18 % (16-48); MONOCYTES % (MANUAL) 10 % (0-11.0); NEUTROPHILS % (MANUAL) 72 (42-76); PLATELET ESTIMATE DECREASED
[2023-11-22 09:26] LABS: ANISOCYTOSIS 1+
[2023-11-22] MEDS: Thiamine 100 MG in IV D5W 50 ML IV SCH (09:26)
[2023-11-22 09:27] LABS: TEAR DROP CELLS 1+
[2023-11-22] MEDS: MAGNESIUM OXIDE 400 MG TABLET PO SCH (11:16)
[2023-11-22] MEDS: POTASSIUM PHOSPHATE MM 7.5 MMOL in IV NS 0.9% 100 ML IV SCH (12:31)
[2023-11-22] MEDS ORDERED: ACETAMINOPHEN 325 MG TABLET PO PRN (16:30)
[2023-11-22] MEDS: ENSURE ENLIVE 237 ML LIQUID (VANILLA) PO SCH (16:45)
[2023-11-22] MEDS: LEVETIRACETAM (250 MG) 250 MG TABLET PO SCH (20:52)
[2023-11-23] VITALS: BP 103/87; TEMP 98.8; O2SAT 95
[2023-11-23 04:00] VITALS: BP 102/70; TEMP 98.4; O2SAT 95
[2023-11-23 07:25] LABS: BASOPHILS % (AUTO) 0.5 % (0.0-2.0); EOSINOPHILS # (AUTO) 0.3 K/uL (0.0-0.7); EOSINOPHILS % (AUTO) 5.8 % (0.0-6.0); HEMATOCRIT 41 % (39-51); LYMPHOCYTES # (AUTO) 0.8 K/uL (0.8-4.8); LYMPHOCYTES % (AUTO) 17.3 % (20.0-44.0); MEAN CORPUSCULAR HEMOGLOBIN 35 PG (26.0-33.0); MEAN CORPUSCULAR HGB CONC 34 g/dl (31.0-36.0); MEAN CORPUSCULAR VOLUME 102 fL (80-96); MONOCYTES # (AUTO) 0.5 K/uL (0.1-1.30); MONOCYTES % (AUTO) 9.4 % (2.0-12.0); NEUTROPHILS # (AUTO) 3.2 K/uL (1.8-8.9); RED BLOOD CELL COUNT(AUTO) 4.04 MIL/uL (4.5-6.0); RED CELL DISTRIBUTION WIDTH 15.2 % (11.5-15.0); WHITE BLOOD COUNT (AUTO) 4.8 K/uL (4.3-11.0)
[2023-11-23 07:29] LABS: PLATELET COUNT (AUTO) 31 K/uL (150-450)
[2023-11-23 07:30] VITALS: BP 118/76; TEMP 98.6; O2SAT 97
[2023-11-23] MEDS: THIAMINE HCL 100 MG TABLET PO SCH (08:31)
[2023-11-23 09:03] LABS: EOSINOPHILS % (MANUAL) 5 % (0-4); LYMPHOCYTES % (MANUAL) 13 % (16-48); MONOCYTES % (MANUAL) 6 % (0-11.0); NEUTROPHILS % (MANUAL) 76 (42-76); PLATELET ESTIMATE DECREASED
[2023-11-23 09:56] LABS: ALBUMIN 2.1 g/dL (3.4-5.0); BILIRUBIN,DIRECT 3.7 mg/dL (0.0-0.2); BILIRUBIN,TOTAL 6.1 mg/dL (0.2-1.0); CALCIUM, SERUM 7.6 mg/dL (8.5-10.1); CREATININE 0.9 mg/dL (0.6-1.3); MAGNESIUM 1.3 mg/dL (1.8-2.4); PHOSPHORUS 1.9 mg/dL (2.5-4.9); POTASSIUM 3.2 mmol/L (3.5-5.1); TOTAL PROTEIN, SERUM 5.6 g/dL (6.4-8.2)
[2023-11-23 16:00] VITALS: BP 124/75; TEMP 97.7; O2SAT 96
[2023-11-23] MEDS: MAGNESIUM OXIDE 400 MG TABLET PO ONE (16:01)
[2023-11-23] MEDS: POTASSIUM PHOSPHATE MM 7.5 MMOL in IV NS 0.9% 100 ML IV SCH (16:07)
[2023-11-23 20:00] VITALS: BP 124/91; TEMP 98.4; O2SAT 94
[2023-11-23 21:13] VITALS: BP 124/91; TEMP 98.4; O2SAT 94
[2023-11-24] VITALS: BP 120/80; TEMP 98.4; O2SAT 95
[2023-11-24 04:00] VITALS: BP 124/83; TEMP 98.4; O2SAT 96
[2023-11-24 04:01] VITALS: BP 124/83; TEMP 98.4; O2SAT 96
[2023-11-24 08:00] VITALS: BP 115/85; TEMP 97.9; O2SAT 98
[2023-11-24] MEDS ORDERED: MULT-754 PO (10:22)
[2023-11-24] MEDS ORDERED: THIA100T88 PO (10:22)
== END 2023-11-24 15:35 | DRG 816 ==
LOC: ER 19:56 → TELE 11-21 01:20
PROVIDERS: ADMIT Internal Medicine; ATTEND Internal Medicine
DX: T51.0X1A Toxic effect of ethanol, accidental (unintentional), initial encounter (principal); G92.9 Unspecified toxic encephalopathy; I12.0 Hypertensive chronic kidney disease with stage 5 chronic kidney disease or end stage renal disease; N18.6 End stage renal disease; E44.0 Moderate protein-calorie malnutrition; I48.20 Chronic atrial fibrillation, unspecified; E88.09 Other disorders of plasma-protein metabolism, not elsewhere classified; D69.59 Other secondary thrombocytopenia; K70.10 Alcoholic hepatitis without ascites; F10.239 Alcohol dependence with withdrawal, unspecified; F10.229 Alcohol dependence with intoxication, unspecified; G40.909 Epilepsy, unspecified, not intractable, without status epilepticus; K70.30 Alcoholic cirrhosis of liver without ascites; B35.1 Tinea unguium; Y90.8 Blood alcohol level of 240 mg/100 ml or more; L85.3 Xerosis cutis; L60.3 Nail dystrophy; M20.42 Other hammer toe(s) (acquired), left foot; M20.41 Other hammer toe(s) (acquired), right foot; Z91.199 Patient's noncompliance with other medical treatment and regimen due to unspecified reason; Z99.2 Dependence on renal dialysis; Z79.82 Long term (current) use of aspirin; Z68.22 Body mass index [BMI] 22.0-22.9, adult
CPT/HCPCS: 36415; 70450-TC; 71045-TC; 73502; 76700-TC; 80048-TC; 80053-TC; 80061-TC; 80076-TC; 82140-TC; 83735-TC; 83880; 84100-TC; 84443-TC; 84484-TC; 85025-TC; 85730-TC; 87081-TC; 93307-TC; 97110-TC; 97112-TC; 97116-TC; 97530-TC; A4223; G0378; G0480; J1953; J2405; J3411; J3490; J7030; J7040; J7050; J7060; J7120

== ENCOUNTER 2023-12-04 21:37 | Emergency (ER) | payer SELFPAY ==
[~2023-12-04] VITALS: Ht 167.6 cm; Wt 63.5 kg
[~2023-12-04 21:37] MED LIST changes: +FERR325T23 PO; +MAGNESIUM CITRATE PO; +MULT-754 PO; +PROP10DR4 EACHEYE; +SPIR25TA6 PO; +THIA100T88 PO
[2023-12-04] MEDS ORDERED: TDAP [DIPH/PERTUSSIS/TET] 0.5 ML VIAL IM ONE (23:36)
[2023-12-04] MEDS: TDAP [DIPH/PERTUSSIS/TET] 0.5 ML VIAL IM ONE (23:56)
[2023-12-05 01:15] VITALS: BP 134/81; TEMP 99.2; O2SAT 98
== END 2023-12-05 01:16 ==
LOC: ER 21:45
DX: S01.412A Laceration without foreign body of left cheek and temporomandibular area, initial encounter (principal); F10.129 Alcohol abuse with intoxication, unspecified; I10 Essential (primary) hypertension; Z79.82 Long term (current) use of aspirin; Z79.899 Other long term (current) drug therapy; W18.39XA Other fall on same level, initial encounter; Y93.89 Activity, other specified; Y92.89 Other specified places as the place of occurrence of the external cause; Y99.8 Other external cause status
CPT/HCPCS: 12011; 70450; 70486; 71045; 72125; 82962; 90471; 90715; 99285; A6403

== ENCOUNTER 2024-07-01 18:06 | Emergency (ER) | payer OTHER ==
[~2024-07-01] VITALS: Ht 165.1 cm; Wt 65.8 kg
[2024-07-01 18:17] VITALS: BP 130/70; TEMP 98.3
[2024-07-02 04:43] VITALS: O2SAT 98
== END 2024-07-02 04:44 ==
LOC: ER 18:15
DX: F10.129 Alcohol abuse with intoxication, unspecified (principal); I10 Essential (primary) hypertension; K70.30 Alcoholic cirrhosis of liver without ascites; Z79.82 Long term (current) use of aspirin; Z99.2 Dependence on renal dialysis; Z86.79 Personal history of other diseases of the circulatory system; Z87.19 Personal history of other diseases of the digestive system; Y90.9 Presence of alcohol in blood, level not specified
CPT/HCPCS: 82962-TC

== ENCOUNTER 2024-08-20 23:47 | Emergency (ER) | payer OTHER ==
[~2024-08-20] VITALS: Ht 175.3 cm; Wt 76.2 kg
[2024-08-21] MEDS ORDERED: TDAP [DIPH/PERTUSSIS/TET] 0.5 ML VIAL IM ONE (01:08)
[2024-08-21] MEDS: TDAP [DIPH/PERTUSSIS/TET] 0.5 ML VIAL IM ONE (01:15)
[2024-08-21 10:02] VITALS: BP 143/82; TEMP 98.5; O2SAT 97
== END 2024-08-21 10:02 | disposition home or self-care (01) ==
LOC: ER 08-21
DX: S01.111A Laceration without foreign body of right eyelid and periocular area, initial encounter (principal); S09.90XA Unspecified injury of head, initial encounter; F10.129 Alcohol abuse with intoxication, unspecified; I10 Essential (primary) hypertension; K70.30 Alcoholic cirrhosis of liver without ascites; Z79.82 Long term (current) use of aspirin; Z79.899 Other long term (current) drug therapy; Z99.2 Dependence on renal dialysis; Y90.9 Presence of alcohol in blood, level not specified; W19.XXXA Unspecified fall, initial encounter; Y93.89 Activity, other specified; Y92.89 Other specified places as the place of occurrence of the external cause; Y99.8 Other external cause status
CPT/HCPCS: 70450-TC; 72125-TC; 90715